=== PATIENT | female | born 1995 | race Two or more races ===

== ENCOUNTER 2021-08-01 22:41 | Emergency (ER) | payer OTHER ==
[~2021-08-01] VITALS: Ht 160 cm; Wt 61.2 kg
[2021-08-02] MEDS ORDERED: NAPROXEN500 MG PO (05:32)
== END 2021-08-02 05:44 | disposition home or self-care (01) ==
LOC: ER 22:41
DX: R10.2 Pelvic and perineal pain (principal)

== ENCOUNTER → 2024-02-21 14:35 | Outpatient (CLI) | payer OTHER ==
[~2024-02-21 14:35] MED LIST: NAPROXEN500 MG PO
== END | disposition home or self-care (01) ==
LOC: PRENATAL 14:35
PROVIDERS: ATTEND Obstetrics & Gynecology Maternal & Fetal Medicine
DX: O44.00 Complete placenta previa NOS or without hemorrhage, unspecified trimester (principal); Z14.8 Genetic carrier of other disease; Z3A.20 20 weeks gestation of pregnancy

== ENCOUNTER 2024-04-17 12:39 | Outpatient (CLI) | payer OTHER | END 2024-04-17 12:41 | disposition home or self-care (01) | LOC: PRENATAL 12:39 | PROVIDERS: ATTEND Obstetrics & Gynecology Maternal & Fetal Medicine | DX: O26.849 Uterine size-date discrepancy, unspecified trimester (principal); Z14.8 Genetic carrier of other disease; Z3A.29 29 weeks gestation of pregnancy ==

== ENCOUNTER 2024-05-20 09:08 | Outpatient (CLI) | payer OTHER | END 2024-05-20 09:14 | disposition home or self-care (01) | LOC: PRENATAL 09:08 | PROVIDERS: ATTEND Obstetrics & Gynecology Maternal & Fetal Medicine | DX: O26.849 Uterine size-date discrepancy, unspecified trimester (principal); O36.8199 Decreased fetal movements, unspecified trimester, other fetus; Z14.8 Genetic carrier of other disease; O24.419 Gestational diabetes mellitus in pregnancy, unspecified control; Z3A.33 33 weeks gestation of pregnancy ==

== ENCOUNTER 2024-06-25 05:31 | Inpatient (IN) | payer OTHER ==
[2024-06-25] VITALS (10 sets, daily range): BP systolic 114–139; BP diastolic 49–81
[~2024-06-25] VITALS: Ht 160 cm; Wt 78.9 kg
[2024-06-25] MEDS ORDERED: PRENATAL CAPLE1 EAC1 (06:22)
[2024-06-25] MEDS ORDERED: RINGERS SOLUTION,LACTATED 1,000 ML IV SCH (07:00)
[2024-06-25 07:03] LABS: URINE APPEARANCE Clear; URINE BILIRRUBIN Negative (NEGATIVE); URINE BLOOD Negative; URINE COLOR Yellow; URINE GLUCOSE Negative (NEGATIVE); URINE KETONE Negative (NEGATIVE); URINE LEUKOCYTE Negative; URINE NITRATE Negative; URINE PROTEIN Negative (NEGATIVE); URINE UROBILINOGEN 0.2 E.U./dl
[2024-06-25 07:04] LABS: URINE EPITHELIAL CELLS 8.2 uL (0.0-38.8); URINE RBC 2.9 uL (0.0-20.8)
[2024-06-25 07:18] LABS: URINE WBC 0.4 uL (0.0-23.2)
[2024-06-25 07:28] LABS: HEMATOCRIT 37.1 % (36.0-45.00); HEMOGLOBIN 12.4 g/dL (12.0-15.00); INR 0.97; MEAN CORPUSCULAR HGB CONC 33.3 g/dl (32.0-36.0); PARTIAL THROMBOPLASTIN TIME 27.6 SECONDS (22.0-34.0); PLATELET COUNT 234 K/uL (150-450); PROTHROMBIN TIME 10.6 SECONDS (9.0-11.5); RED BLOOD COUNT 4.42 M/uL (4.00-6.00); RED CELL DISTRIBUTION WIDTH 14.6 % (11.5-14.5)
[2024-06-25] MEDS ORDERED: OXYTOCIN 20 UNITS/500ML RL PIGGYBAG IV ONE (11:53)
[2024-06-25] MEDS ORDERED: OXYTOCIN 20 UNITS/500ML RL PIGGYBAG IV SCH (12:15)
[2024-06-25] MEDS ORDERED: MORPHINE SULFATE 4 MG/ML CARTRIDGE IV STA (16:46)
[2024-06-25] MEDS ORDERED: OXYTOCIN 20 UNITS/1000ML RL PIGGYBAG IV ONE (19:41)
[2024-06-25] MEDS ORDERED: LIDOCAINE HCL 1% 10ML VIAL ONE (19:41)
[2024-06-25] MEDS ORDERED: CHLORHEXIDINE GLUCONATE 120 ML BOTTLE TOP ONE (19:41)
[2024-06-25] MEDS ORDERED: ERYTHROMYCIN BASE OPHT 1GM EACH TUBE OP ONE ×2 (19:41→23:15)
[2024-06-25] MEDS ORDERED: METHYLERGONOVINE MALEATE 0.2 MG/ML AMPUL ONE (20:23)
[2024-06-25] MEDS ORDERED: CHLORHEXIDINE GLUCONATE 120 ML BOTTLE TP SCH (21:45)
[2024-06-25] MEDS ORDERED: ACETAMINOPHEN 500 MG GEL..CAP PO PRN (21:45)
[2024-06-25] MEDS ORDERED: OXYTOCIN 1,000 ML IV SCH (21:45)
[2024-06-25] MEDS ORDERED: LIDOCAINE HCL 1% 10ML VIAL IJ ONE (23:15)
[2024-06-25] MEDS ORDERED: METHYLERGONOVINE MALEATE 0.2 MG/ML AMPUL IM ONE (23:15)
[2024-06-26 01:26] LABS: HEMATOCRIT 38.1 % (36.0-45.00); HEMOGLOBIN 12.8 g/dL (12.0-15.00); MEAN CELL VOLUME 83.7 fL (80.00-100.00); MEAN CORPUSCULAR HEMOGLOBIN 28.1 pg (27.00-32.0); MEAN CORPUSCULAR HGB CONC 33.6 g/dl (32.0-36.0); PLATELET COUNT 234 K/uL (150-450); RED BLOOD COUNT 4.55 M/uL (4.00-6.00); RED CELL DISTRIBUTION WIDTH 14.7 % (11.5-14.5)
[2024-06-26 04:00] VITALS: BP 119/75
[2024-06-26 05:28] VITALS: BP 116/75
[2024-06-26 08:15] VITALS: BP 107/66
[2024-06-26] MEDS ORDERED: PNV,CALCIUM 72/IRON/FOLIC ACID 1 TAB TABLET PO SCH (09:00)
[2024-06-26 17:31] VITALS: BP 114/79
[2024-06-26 21:13] VITALS: BP 130/79
[2024-06-26 23:57] VITALS: BP 112/71
[2024-06-27 08:00] VITALS: BP 126/80
== END 2024-06-27 14:50 | disposition home or self-care (01) | DRG 807 ==
LOC: LDR 05:31 → OB/GYN 05:31
PROVIDERS: ADMIT Obstetrics & Gynecology; ATTEND Obstetrics & Gynecology
PROC: 10E0XZZ Delivery of Products of Conception, External Approach (ICD-10-PCS; principal; 2024-06-25)
PROC: 0KQM0ZZ Repair Perineum Muscle, Open Approach (ICD-10-PCS; 2024-06-25)
PROC: 0UQG7ZZ Repair Vagina, Via Natural or Artificial Opening (ICD-10-PCS; 2024-06-25)
PROC: 4A1HXCZ Monitoring of Products of Conception, Cardiac Rate, External Approach (ICD-10-PCS; 2024-06-25)
DX: O70.1 Second degree perineal laceration during delivery (principal); Z37.0 Single live birth; Z3A.39 39 weeks gestation of pregnancy